=== PATIENT | female | born 1950 | race Caucasian/White ===

== ENCOUNTER 2016-08-27 12:02 | Outpatient (CLI) | payer OTHER | END 2016-08-27 12:03 | disposition home or self-care (01) | LOC: LAB 12:02 | PROVIDERS: ATTEND Advanced Practice Midwife | DX: R61 Generalized hyperhidrosis (principal) | CPT/HCPCS: 36415; 84443 ==

== ENCOUNTER 2016-09-28 10:32 | Emergency (ER) ==
[2016-09-28 10:36] VITALS: BP 170/113; TEMP 98.9; BMI 31.3
--- NOTE | 2016-09-28 10:51 | ED.PDOC ---
General ED Provider: Dr. GYPSY WHEATLEY Chief Complaint: Non-specific Complaint Stated Complaint: labial abscess Time Seen by Physician: 10:33 Mode of Arrival: Walk-In Information Source: Patient Exam Limitations: No limitations [facility] and Triage Documentation Reviewed and Agree: Yes Complaint Exam - Complaint/Exam Onset/Duration: 2 days Symptoms Are: Still present Timing: Constant Initial Severity: Mild Current Severity: Mild Location of Pain: Reports: None Aggravating: Reports: None Alleviating: Reports: None Associated Signs and Symptoms: Denies: Diaphoresis, Back pain, Fever, Hematuria , Dysuria, Constipation, Blood in stool, Rectal pain, Appetite change, Nausea, Vomiting, Decreased urine output, Increased urine frequency, Increased thirst, Decreased activity, Lethargy, Abdominal Pain, Bubble bath use, Vaginal bleeding , Vaginal discharge, Genital swelling, Genital blisters, Retained foreign body Ectopic Risk Factors: Reports: None Ovarian Torsion Risk Factors: Reports: None Surgical Obstruction Risk Factors: Reports: None RH Status: Unknown Abdominal Findings: Present: None Review of Systems - Review Of Systems Constitutional: Reports: No symptoms Eyes: Reports: No symptoms Ears, Nose, Mouth, Throat: Reports: No symptoms Respiratory: Reports: No symptoms Cardiac: Reports: No symptoms GI: Reports: No symptoms : Reports: Other (labial abscess ) Musculoskeletal: Reports: No symptoms Skin: Reports: No symptoms Neurological: Reports: No symptoms Endocrine: Reports: No symptoms Hematologic/Lymphatic: Reports: No symptoms All Other Systems: Reviewed and Negative Past Medical History - Past Medical History Previously Healthy: Yes Endocrine: Reports: None Cardiovascular: Reports: None Respiratory: Reports: None Hematological: Reports: None Gastrointestinal: Reports: None Genitourinary: Reports: None Neuro/Psych: Reports: None Musculoskeletal: Reports: None Cancer: Reports: None Last Menstrual Period: none - Surgical History General Surgical History: Reports: None - Family History Family History: Reports: None - Social History Smoking Status: Never smoker Hx Substance Use: No Alcohol Screening: None Physical Exam - Physical Exam Appearance: Well-appearing, No pain distress, Well-nourished Eyes: VICTORINA, EOMI, Conjunctiva clear ENT: Ears normal, Nose normal, Oropharynx normal Respiratory: Airway patent, Breath sounds clear, Breath sounds equal, Respirations nonlabored Cardiovascular: RRR, Pulses normal, No rub, No murmur GI/: Tender (3mm abscess not pointing noted no adenopathy) Musculoskeletal: Normal strength, ROM intact, No edema, No calf tenderness Skin: Warm, Dry, Normal color Neurological: Sensation intact, Motor intact, Reflexes intact, Cranial nerves intact, Alert, Oriented Psychiatric: Affect appropriate, Mood appropriate Critical Care Note - Critical Care Note Total Time (mins): 0 Course - Course Vital Signs: Temp Pulse Resp BP Pulse Ox 09/28/16 10:33 98.9 F 78 18 170/113 H 96 Departure - Departure Time of Disposition: 10:51 Disposition: HOME SELF-CARE Discharge Problem: Abscess Instructions: Abscess (ED) Condition: Good Pt referred to PMD for follow-up: No Additional Instructions: Please call your Family Physician as soon as possible to schedule a follow-up appointment. your allergic to sulfa meds and due to your psych meds you are unable to take tetracycline, or cipro see the clinic for immediate [facility] [employer] Allergies/Adverse Reactions: Allergies benazepril HCl [From Lotensin] Allergy (Intermediate, Verified 09/28/16 10:36) Cough lisinopril Allergy (Intermediate, Verified 09/28/16 10:36) Cough Sulfa (Sulfonamide Antibiotics) Allergy (Mild, Verified 09/28/16 10:36) Itching Home Medications: Ambulatory Orders Aspirin [Aspirin EC] 81 mg PO DAILYWM 12/27/13 Calcium Carb & Citrate/Vit D3 [Calcium + D3 ER Tablet] 600 mg PO DAILY 08/15/15 Cyanocobalamin/Folic Acid [Vitamin S74-Ahzmz Acid Tablet] 1,000 mg PO DAILY Lovastatin [Mevacor] 10 mg PO BEDTIME 08/15/15
== END 2016-09-28 10:59 | disposition home or self-care (01) ==
LOC: ED 10:32
DX: N76.4 Abscess of vulva (principal)
CPT/HCPCS: 99281

== ENCOUNTER 2016-09-29 13:33 | Outpatient (CLI) ==
[2016-09-28 10:36] VITALS: BMI 31.3
== END 2016-09-29 13:34 | disposition home or self-care (01) ==
LOC: LAB 13:33
PROVIDERS: ATTEND Nurse Practitioner Family
DX: N76.4 Abscess of vulva (principal)
CPT/HCPCS: 87070; 87186

== ENCOUNTER 2016-10-07 10:31 | Outpatient (CLI) ==
[2016-10-07 11:28] LABS: ANION GAP 10.9; BILIRUBIN,TOTAL 0.57 mg/dL (0.00-1.20); BUN/CREATININE RATIO 16.5; CALCIUM 9.8 mg/dL (8.2-10.2); CHOL/HDL RATIO 3.5 (4.5-5.5); CREATININE 1.03 mg/dL (0.60-1.30); POTASSIUM 3.9 mmol/L (3.5-5.10)
== END 2016-10-07 10:32 | disposition home or self-care (01) ==
LOC: LAB 10:31
PROVIDERS: ATTEND Nurse Practitioner Family
DX: I10 Essential (primary) hypertension (principal); E11.9 Type 2 diabetes mellitus without complications; E78.1 Pure hyperglyceridemia
CPT/HCPCS: 36415; 80053; 80061; 83036

== ENCOUNTER 2017-01-07 07:30 | Outpatient (CLI) | payer OTHER ==
[2017-01-07 07:44] LABS: BASOPHILS % (AUTO) 0.9 % (0.0-3.0); EOSINOPHILS # (AUTO) 0.1 K/ul (0.0-0.7); EOSINOPHILS % (AUTO) 3.2 % (0.0-7.0); HEMATOCRIT 38.4 % (37.0-47.0); HEMOGLOBIN 13.2 g/dl (12.0-16.0); LYMPHOCYTES # (AUTO) 1.7 K/uL (0.60-3.4); LYMPHOCYTES % (AUTO) 49.9 (10.0-50.0); MEAN CORPUSCULAR HEMOGLOBIN 30.7 pg (27.0-31.0); MEAN CORPUSCULAR HGB CONC 34.4 (31.8-35.4); MEAN CORPUSCULAR VOLUME 89.3 fl (81.0-99.0); MONOCYTES # (AUTO) 0.3 K/uL (0.4-2.0); MONOCYTES % (AUTO) 9.9 (0-10); NEUTROPHILS # (AUTO) 1.3 K/ul (2.0-6.9); NEUTROPHILS % (AUTO) 36.1; PLATELET COUNT 280 10^3/uL (140-440); WHITE BLOOD COUNT 3.45 K/ul (4.6-10.2)
[2017-01-07 08:24] LABS: ALBUMIN 3.6 g/dL (3.4-5.0); ALBUMIN/GLOBULIN RATIO 1.03; ANION GAP 12.6; BILIRUBIN,TOTAL 0.6 mg/dL (0.00-1.20); BUN/CREATININE RATIO 18.68; CALCIUM 9.3 mg/dL (8.2-10.2); CHOL/HDL RATIO 2.9 (4.5-5.5); CREATININE 0.91 mg/dL (0.60-1.30); POTASSIUM 3.6 mmol/L (3.5-5.10); TOTAL PROTEIN 7.1 g/dL (5.8-8.1)
[2017-01-07 08:50] LABS: H. PYLORI ANTIBODY NEGATIVE (NEGATIVE); H.PYLORI INTERNAL QC INTERNAL QC VALID
== END 2017-01-07 07:31 | disposition home or self-care (01) ==
LOC: LAB 07:30
PROVIDERS: ATTEND Nurse Practitioner Family
DX: R10.9 Unspecified abdominal pain (principal); E11.9 Type 2 diabetes mellitus without complications; I10 Essential (primary) hypertension; E78.1 Pure hyperglyceridemia; E78.5 Hyperlipidemia, unspecified
CPT/HCPCS: 36415; 80053; 80061; 83036; 84443; 85025; 86677

== ENCOUNTER 2017-02-08 09:27 | Outpatient (CLI) ==
[2017-02-08 09:38] LABS: BASOPHILS % (AUTO) 0.4 % (0.0-3.0); EOSINOPHILS # (AUTO) 0.1 K/ul (0.0-0.7); EOSINOPHILS % (AUTO) 2.9 % (0.0-7.0); HEMATOCRIT 40.3 % (37.0-47.0); HEMOGLOBIN 13.8 g/dl (12.0-16.0); IMMATURE GRANULOCYTE % (AUTO) 0.2 % (0.0-5.0); LYMPHOCYTES # (AUTO) 1.7 K/uL (0.60-3.4); LYMPHOCYTES % (AUTO) 38.6 (10.0-50.0); MEAN CORPUSCULAR HEMOGLOBIN 30.7 pg (27.0-31.0); MEAN CORPUSCULAR HGB CONC 34.2 (31.8-35.4); MEAN CORPUSCULAR VOLUME 89.8 fl (81.0-99.0); MONOCYTES # (AUTO) 0.3 K/uL (0.4-2.0); MONOCYTES % (AUTO) 7.5 (0-10); NEUTROPHILS # (AUTO) 2.3 K/ul (2.0-6.9); NEUTROPHILS % (AUTO) 50.4; PLATELET COUNT 252 10^3/uL (140-440); RED BLOOD COUNT 4.49 10^6/ul (4.20-5.40); WHITE BLOOD COUNT 4.51 K/ul (4.6-10.2)
[2017-02-08 09:40] LABS: BILIRUBIN,URINE Negative (NEGATIVE); KETONES,URINE Negative (NEGATIVE); LEUKOCYTE ESTERASE ,URINE Trace (NEGATIVE); NITRITE,URINE Negative (NEGATIVE); PROTEIN,URINE 1+ (NEGATIVE); URINE, BLOOD Trace-intact (NEGATIVE)
[2017-02-08 09:50] LABS: ADD URINE MICROSCOPIC YES
== END 2017-02-08 09:28 | disposition home or self-care (01) ==
LOC: LAB 09:27
PROVIDERS: ATTEND Nurse Practitioner Family
DX: D70.3 Neutropenia due to infection (principal); R53.83 Other fatigue; R10.9 Unspecified abdominal pain; Z82.69 Family history of other diseases of the musculoskeletal system and connective tissue
CPT/HCPCS: 36415; 81001; 85025; 86038

== ENCOUNTER 2017-02-22 09:40 | Outpatient (CLI) ==
[2017-02-22 12:39] LABS: BILIRUBIN,URINE Negative (NEGATIVE); KETONES,URINE Negative (NEGATIVE); LEUKOCYTE ESTERASE ,URINE 1+ (NEGATIVE); NITRITE,URINE Negative (NEGATIVE); PROTEIN,URINE Negative (NEGATIVE); URINE, BLOOD Trace-intact (NEGATIVE)
[2017-02-22 12:48] LABS: ADD URINE MICROSCOPIC YES
[2017-02-22 12:53] LABS: BACTERIA,URINE TRACE (NOT PRESENT)
== END 2017-02-22 09:41 | disposition home or self-care (01) ==
LOC: LAB 09:40
PROVIDERS: ATTEND Nurse Practitioner Family
DX: R80.9 Proteinuria, unspecified (principal)
CPT/HCPCS: 81001

== ENCOUNTER 2017-04-12 07:30 | Outpatient (CLI) ==
[2017-04-12 07:53] LABS: BASOPHILS % (AUTO) 0.5 % (0.0-3.0); EOSINOPHILS # (AUTO) 0.1 K/ul (0.0-0.7); EOSINOPHILS % (AUTO) 2.3 % (0.0-7.0); HEMATOCRIT 38.2 % (37.0-47.0); HEMOGLOBIN 13.2 g/dl (12.0-16.0); IMMATURE GRANULOCYTE % (AUTO) 0.2 % (0.0-5.0); LYMPHOCYTES # (AUTO) 1.8 K/uL (0.60-3.4); LYMPHOCYTES % (AUTO) 40.2 (10.0-50.0); MEAN CORPUSCULAR HGB CONC 34.6 (31.8-35.4); MEAN CORPUSCULAR VOLUME 89.7 fl (81.0-99.0); MONOCYTES # (AUTO) 0.4 K/uL (0.4-2.0); MONOCYTES % (AUTO) 9.1 (0-10); NEUTROPHILS # (AUTO) 2.1 K/ul (2.0-6.9); NEUTROPHILS % (AUTO) 47.7; PLATELET COUNT 224 10^3/uL (140-440); RED BLOOD COUNT 4.26 10^6/ul (4.20-5.40); WHITE BLOOD COUNT 4.38 K/ul (4.6-10.2)
[2017-04-12 08:10] LABS: ALBUMIN 3.6 g/dL (3.4-5.0); ALBUMIN/GLOBULIN RATIO 1.09; ANION GAP 11.5; BILIRUBIN,TOTAL 0.7 mg/dL (0.00-1.20); BUN/CREATININE RATIO 19.19; CALCIUM 9.4 mg/dL (8.2-10.2); CHOL/HDL RATIO 3.2 (4.5-5.5); CREATININE 0.99 mg/dL (0.60-1.30); POTASSIUM 3.5 mmol/L (3.5-5.10); TOTAL PROTEIN 6.9 g/dL (5.8-8.1)
== END 2017-04-12 07:31 | disposition home or self-care (01) ==
LOC: LAB 07:30
PROVIDERS: ATTEND Nurse Practitioner Family
DX: E11.9 Type 2 diabetes mellitus without complications (principal); I10 Essential (primary) hypertension; E78.1 Pure hyperglyceridemia
CPT/HCPCS: 36415; 80053; 80061; 83036; 85025

== ENCOUNTER 2017-07-07 09:54 | Outpatient (CLI) ==
[2017-07-07 10:29] LABS: ALBUMIN 3.8 g/dL (3.4-5.0); ALBUMIN/GLOBULIN RATIO 1.06; ANION GAP 12.9; BILIRUBIN,TOTAL 0.53 mg/dL (0.00-1.20); BUN/CREATININE RATIO 20.79; CALCIUM 9.5 mg/dL (8.2-10.2); CHOL/HDL RATIO 3.5 (4.5-5.5); CREATININE 1.01 mg/dL (0.60-1.30); POTASSIUM 3.9 mmol/L (3.5-5.10); TOTAL PROTEIN 7.4 g/dL (5.8-8.1)
== END 2017-07-07 09:55 | disposition home or self-care (01) ==
LOC: LAB 09:54
PROVIDERS: ATTEND Nurse Practitioner Family
DX: E78.1 Pure hyperglyceridemia (principal); E11.9 Type 2 diabetes mellitus without complications; I10 Essential (primary) hypertension
CPT/HCPCS: 36415; 80053; 80061; 83036

== ENCOUNTER 2017-07-14 08:51 | Outpatient (CLI) ==
--- NOTE | 2017-07-14 12:24 | MRI ---
EXAM: MRI of the left shoulder without contrast COMPARISON: None available. HISTORY: Left shoulder and arm pain with decreased range of motion. No known injury. TECHNIQUE: Multiplanar noncontrast MR images of the left shoulder were acquired using a 1.2 Amberly ma gnet. Several sequences are mildly limited by patient motion artifact. FINDINGS: No recent radiographs of the left shoulder are available for comparison and radiographic c orrelation is recommended. There is moderately severe supraspinatus, infraspinatus and subscapularis tendinosis. There is thinn ing and articular surface irregularity involving the distal 1.6 cm of the supraspinatus consistent wi th extensive partial-thickness articular surface tear with extension through the anterior portion of the distal infraspinatus. Suspected full-thickness tear involving the anterior insertional fibers of the supraspinatus measuring 6 mm in extent. Fluid in the subacromial/subdeltoid bursa. Small joint effusion. Limited assessment of the glenoid labrum on this non arthrographic, motion limited study. No paralab ral cyst. Minimal degenerative spurring of the glenohumeral joint with preservation of the joint spa ce. No acute fracture or dislocation. The long head of the biceps is located within the bicipital groove with mild tendinosis. Moderate hypertrophic degenerative changes of the acromioclavicular joint without evidence of an os a cromiale or abnormal widening of the acromioclavicular joint space. No soft tissue mass identified. IMPRESSION: 1. Moderately severe rotator cuff tendinosis. Tear with partial thickness and full-thickness compon ents involving the supraspinatus as well as a partial-thickness tear of the infraspinatus. 2. Small glenohumeral joint effusion. Fluid in the subacromial/subdeltoid bursa related to the full -thickness rotator cuff tear and/or component bursitis. 3. Moderate hypertrophic degenerative changes of the acromioclavicular joint. 4. Mild long head biceps tendinosis.
== END 2017-07-14 08:52 | disposition home or self-care (01) ==
LOC: RAD 08:51
PROVIDERS: ATTEND Nurse Practitioner Family
DX: M25.512 Pain in left shoulder (principal); R29.898 Other symptoms and signs involving the musculoskeletal system

== ENCOUNTER 2017-07-19 08:43 | Outpatient (CLI) ==
--- NOTE | 2017-07-19 11:00 | MAMMO ---
EXAM: Bilateral digital screening mammogram (2-D and 3-D) History: Screening Comparison: Bilateral mammogram 06/29/2016 Findings: MLO and CC views of bilateral breasts demonstrate scattered fibroglandular breast parenchy ma. CAD was reviewed by the radiologist. Tomosynthesis was performed. Stable benign bilateral celia st calcifications. Biopsy clip again seen within the right breast. There are no developing masses a nd no suspicious microcalcifications. Impression: Benign stable mammogram. Recommend followup routine screening mammography in 1 year. BIRADS 2
== END 2017-07-19 08:44 | disposition home or self-care (01) ==
LOC: RAD 08:43
PROVIDERS: ATTEND Nurse Practitioner Family
DX: Z12.31 Encounter for screening mammogram for malignant neoplasm of breast (principal)
CPT/HCPCS: 77067

== ENCOUNTER 2017-10-01 10:18 | Outpatient (CLI) ==
--- NOTE | 2017-10-01 11:25 | DI ---
EXAM: PA and lateral views of the chest HISTORY: Cough. COMPARISON: Chest x-ray 07/21/2016 and multiple priors FINDINGS: The cardiomediastinal silhouette is cardiomediastinal silhouette is normal. There is no p neumothorax or pleural effusion. There is no consolidation, nodule or mass. The lungs are mildly hy perinflated. There is scattered degenerative disease of the spine. There are surgical clips in righ t upper quadrant. IMPRESSION: 1. Lungs are hyperinflated with no acute consolidation. 2. There is multilevel degenerative disease of the spine.
== END 2017-10-01 10:19 | disposition home or self-care (01) ==
LOC: RAD 10:18
PROVIDERS: ATTEND Nurse Practitioner Family
DX: R05 Cough (principal); R06.02 Shortness of breath

== ENCOUNTER 2017-10-08 09:37 | Outpatient (CLI) | END 2017-10-08 09:38 | disposition home or self-care (01) | LOC: RHC-LAB 09:37 | PROVIDERS: ATTEND Nurse Practitioner Family | DX: E11.9 Type 2 diabetes mellitus without complications (principal); I10 Essential (primary) hypertension; E78.1 Pure hyperglyceridemia; E78.5 Hyperlipidemia, unspecified | CPT/HCPCS: 36415; 80053; 80061; 83036; 84443; 85025 ==

== ENCOUNTER 2017-11-05 11:11 | Outpatient (CLI) | payer OTHER | END 2017-11-05 11:12 | disposition home or self-care (01) | LOC: RHC-LAB 11:11 | PROVIDERS: ATTEND Emergency Medicine | DX: J06.9 Acute upper respiratory infection, unspecified (principal) ==

== ENCOUNTER 2018-01-10 16:18 | Outpatient (CLI) | END 2018-01-10 16:19 | disposition home or self-care (01) | LOC: RHC-LAB 16:18 | PROVIDERS: ATTEND Nurse Practitioner Family | DX: E11.9 Type 2 diabetes mellitus without complications (principal); E78.5 Hyperlipidemia, unspecified; E78.1 Pure hyperglyceridemia | CPT/HCPCS: 36415; 80053; 80061; 83036 ==

== ENCOUNTER 2018-01-11 12:25 | Outpatient (CLI) | payer OTHER | END 2018-01-11 12:26 | disposition home or self-care (01) | LOC: RHC-LAB 12:25 | PROVIDERS: ATTEND Nurse Practitioner Family | DX: N64.52 Nipple discharge (principal); R53.83 Other fatigue | CPT/HCPCS: 36415; 83970; 84146; 84443; 87070 ==

== ENCOUNTER 2018-01-12 08:27 | Outpatient (CLI) ==
--- NOTE | 2018-01-12 08:58 | MAMMO ---
EXAM: Left digital diagnostic mammogram (2-D and 3-D) History: Spontaneous clear left nipple discharge. Comparison: Bilateral mammogram 07/19/2017 Findings: MLO and CC views of the left breast demonstrate scattered fibroglandular breast parenchyma . Stable benign calcification within the left breast. No dominant masses and no suspicious microcal cifications. CAD was reviewed by the radiologist. Tomosynthesis was performed. Impression: No mammographic abnormality to correlate with the nipple discharge. Recommend further e valuation with ultrasound. BIRADS 0
--- NOTE | 2018-01-12 09:16 | US ---
EXAM: Left breast ultrasound. History: Clear nipple discharge. Comparison: Left diagnostic mammogram 01/12/2018 Technique: Multiple sonographic images through the left breast were obtained. Color duplex Doppler was used to interrogate vascular flow. Findings: Just beneath the skin at 3 o'clock 2 cm from nipple there is a 5 mm cyst cluster which is incidental. No suspicious masses. No abnormal fluid collections. No dilated ducts. Impression: No sonographic abnormalities identified to correlate with the left breast clear nipple d ischarge. Surgical consult is recommended. BIRADS 0
== END 2018-01-12 08:28 | disposition home or self-care (01) ==
LOC: RAD 08:27
PROVIDERS: ATTEND Nurse Practitioner Family
DX: N64.52 Nipple discharge (principal)

== ENCOUNTER 2018-04-14 06:34 | Outpatient (CLI) ==
--- NOTE | 2018-04-14 11:35 | ECHO2D ---
Date of Exam: 04/14/18 Ordering Physician: [facility] Room #: OP Reason for Echo: HTN, DM, PRECORDIAL PAIN M-Mode Normal Adult Results LV Dimensions Normal Adult Results AoV Opening excursions >1.6 >1.6 LVEDD-base- 3.5-5.8 4.0 Ao root dimensions 2.0-3.7 3.1 LVESD-base- 3.1-4.6 L. Atrium dimensions 1.9-3.8 4.3 Post. Wall thickness 0.8-1.1 1.2 IV septum (thickness) 0.7-1.2 1.2 Post. Wall excursion 0.72-1.3 NORMAL Septal motion NORMAL Systolic motion R. Ventricular cavity 1.5-2.0 NORMAL LVEF 60% 74% Paradoxical septal wall motion NORMAL 2-D : 2-D M Mode Echocardiogram was performed using apical four chamber and left parasternal long and short axis views. Mitral, tricuspid and aortic valves appear to be normal. Contractility of the left ventricle seems to be normal, so is the cavity size. Enlarged left atrial cavity size. Aortic root appear to be normal. There is no pericardial effusion. There is no thrombus noted in the left ventricular or left aortic cavity. No mitral valve prolapse noted. M-MODE: MV: NORMAL AV: NORMAL TV: NORMAL PV: CHAMBER SIZE: ENLARGED LEFT ATRIAL CAVITY WALL MOTION: NORMAL PERICARDIUM: NORMAL INTERPRETATION: 1. BORDERLINE LEFT VENTRICULAR HYPERTROPHY 2. ENLARGED LEFT ATRIAL CAVITY 3. NORMAL LEFT VENTRICULAR CONTRACTILITY MTDD
== END 2018-04-14 06:35 | disposition home or self-care (01) ==
LOC: CAR 06:34
PROVIDERS: ATTEND Emergency Medicine
DX: E11.9 Type 2 diabetes mellitus without complications (principal); I10 Essential (primary) hypertension; R07.2 Precordial pain
CPT/HCPCS: 36415; 83037

== ENCOUNTER 2018-04-18 06:47 | Outpatient (CLI) ==
--- NOTE | 2018-04-18 08:17 | STRESSECHO ---
Date of Test: 04/18/18 Ordering Physician: NASEEM ROSENBERG Reason for Exam: PRECORDIAL CHEST PAIN, HYPERTENSION Height: 68" Weight : 193 LBS Current Medications: FENOFIBRATE,HCTZ, LOVASTATIN, MELOXICAM, METOPROLOL, SINGULAIR, CARAFATE, BUSPIRONE, CITALOPRAM Resting EKG: SINUS RHYTHM/ NO ACUTE CHANGES Target Heart Rate: 130/154 S-T SEGMENT STAGE MPH/GRADE HEART RATE BPM BLOOD PRESSURE MMHG RHYTHM +/- ELEVATION DEPRESSION SYMPTOMS,COMMENTS AT REST 85 168/92 SR X NONE 1 1.7/10% 2 2.5/12% 3 3.4/14% 4 4.2/16% 5 5.0/18% Immediately After 155 204/89 SR X SHORT OF BREATH Minutes Post Exercise 4:00 87 170/82 SR X SHORT OF BREATH Minutes Post Exercise DURATION OF EXERCISE: 1:34 MAXIMUM HEART RATE REACHED: 155 BPM REASON FOR TERMINATION: SHORT OF BREATH 98% OXYGEN SATURATION ON ROOM AIR WITH EXERCISE METS 4.0 INTERPRETATION: 1. NO EVIDENCE OF ISCHEMIA BY ST-T WAVE 2. NO CHEST PAIN OR DISCOMFORT 3. POOR EXERCISE TOLERANCE 4. BLOOD PRESSURE --HYPERTENSION AT REST AND WITH EXERCISE NORMAL LEFT VENTRICULAR CONTRACTILITY--RESTING AND POST EXERCISE MTDD
--- NOTE | 2018-04-18 08:27 | ECHOSTRESS ---
Date of Exam: 04/18/18 Ordering Physician: LESLY ROSENBERG Reason for Echo: PRECORDIAL PAIN, HTN, STRESS TEST--NO ISCHEMIA M-Mode Normal Adult Results LV Dimensions Normal Adult Results AoV Opening excursions >1.6 LVEDD-base- 3.5-5.8 Ao root dimensions 2.0-3.7 LVESD-base- 3.1-4.6 L. Atrium dimensions 1.9-3.8 Post. Wall thickness 0.8-1.1 IV septum (thickness) 0.7-1.2 Post. Wall excursion 0.72-1.3 Septal motion Systolic motion R. Ventricular cavity 1.5-2.0 LVEF 60% Paradoxical septal wall motion 2-D: NORMAL LEFT VENTRICULAR CONTRACTILITY--RESTING AND POST EXERCISE M-MODE: MV: AV: TV: PV: CHAMBER SIZE: WALL MOTION: NORMAL LEFT VENTRICULAR CONTRACTILITY--RESTING AND POST EXERCISE PERICARDIUM: INTERPRETATION: 1. NORMAL LEFT VENTRICULAR CONTRACTILITY--RESTING AND POST EXERCISE MTDD
== END 2018-04-18 06:48 | disposition home or self-care (01) ==
LOC: CAR 06:47
PROVIDERS: ATTEND Emergency Medicine
DX: R07.2 Precordial pain (principal); I10 Essential (primary) hypertension

== ENCOUNTER 2019-01-06 11:12 | Outpatient (CLI) | payer OTHER | END 2019-01-06 11:13 | disposition home or self-care (01) | LOC: LAB 11:12 | PROVIDERS: ATTEND Nurse Practitioner Family | DX: E11.9 Type 2 diabetes mellitus without complications (principal); I10 Essential (primary) hypertension; E78.5 Hyperlipidemia, unspecified | CPT/HCPCS: 36415; 80053; 80061; 83036; 85025 ==

== ENCOUNTER 2019-01-12 12:14 | Outpatient (CLI) | END 2019-01-12 12:15 | disposition home or self-care (01) | LOC: RHC-LAB 12:14 | PROVIDERS: ATTEND Nurse Practitioner Family | DX: R53.83 Other fatigue (principal); M85.80 Other specified disorders of bone density and structure, unspecified site | CPT/HCPCS: 36415; 82306; 82607 ==

== ENCOUNTER 2019-03-24 11:44 | Outpatient (CLI) | END 2019-03-24 11:45 | disposition home or self-care (01) | LOC: RHC-LAB 11:44 | PROVIDERS: ATTEND Nurse Practitioner Family | DX: J02.9 Acute pharyngitis, unspecified (principal) | CPT/HCPCS: 87651 ==